=== PATIENT | female | born 1995 | race Caucasian/White ===

== ENCOUNTER 2017-03-25 19:28 | Outpatient (CLI) | payer OTHER, MEDICAID ==
[~2017-03-25] VITALS: Ht 160 cm; Wt 88.2 kg
[2017-03-25 19:53] VITALS: BP 134/78; PULSE 103; TEMP 97.9
[2017-03-25] MEDS ORDERED: ZANTAC 150MG T150 MG PO (19:58)
[2017-03-25] MEDS ORDERED: PRENATAL PO (19:59)
[2017-03-25 20:00] VITALS: BP 134/78; PULSE 103; TEMP 97.9
[2017-03-25] MEDS ORDERED: IRON 27 MG PO (20:00)
[2017-03-25] MEDS ORDERED: BENADRYL25 M2 PO (20:01)
[2017-03-25 20:30] VITALS: BP 119/75; PULSE 88
[2017-03-25 20:47] VITALS: BP 118/77; PULSE 83
== END 2017-03-25 21:10 | disposition home or self-care (01) ==
LOC: LDRO 19:28
DX: O99.89 Other specified diseases and conditions complicating pregnancy, childbirth and the puerperium (principal); R42 Dizziness and giddiness; Z3A.32 32 weeks gestation of pregnancy

== ENCOUNTER 2017-05-26 11:10 | Outpatient (CLI) | payer OTHER, MEDICAID ==
[~2017-05-26 11:10] MED LIST: BENADRYL25 M2 PO; IRON 27 MG PO; PRENATAL PO; ZANTAC 150MG T150 MG PO
[2017-05-26 12:15] VITALS: BP 116/71; PULSE 86; TEMP 97.4
== END 2017-05-26 12:25 | disposition home or self-care (01) ==
LOC: LDRO 11:10 → EDSTATUS 11:15 → LDRO 12:25
DX: Z34.03 Encounter for supervision of normal first pregnancy, third trimester (principal); Z3A.40 40 weeks gestation of pregnancy

== ENCOUNTER 2017-05-31 18:10 | Inpatient (IN) | payer OTHER, MEDICAID ==
[~2017-05-31] VITALS: Ht 160 cm; Wt 94.1 kg
[2017-05-31] VITALS (16 sets, daily range): BP systolic 118–146; BP diastolic 70–82; PULSE 88–109; TEMP 98.2–98.3
[2017-05-31 19:15] LABS: BASO % 0.2 % (0.0-2.0); EOS % 0.1 % (0-4.0); GRAN # 11.9 (1.4-6.5); GRAN % 82.8 % (42.2-75.2); HEMOGLOBIN 11.8 g/dl (12.0-15.0); LYMPH # 1.5 (1.2-3.4); LYMPH % 10.6 % (20.0-51.0); MEAN CELL VOLUME 83 fl (80.0-95.0); MEAN CORPUSCULAR HEMOGLOBIN 28 pg (26.0-32.0); MEAN CORPUSCULAR HGB CONC 34 g/dl (33.0-37.0); MEAN PLATELET VOLUME 11.3 fl (7.4-10.4); MONO # 0.8 (0.1-0.6); MONO % 5.6 % (1.7-9.3); PLATELET COUNT 188 K/mm3 (130-400); RED BLOOD COUNT 4.23 M/mm3 (4.10-5.30); REDCELL DISTRIBUTION WIDTH-CV 15.1 % (11.5-14.5); WHITE BLOOD COUNT 14.4 K/mm3 (4.8-10.8)
[2017-06-01] VITALS (33 sets, daily range): BP systolic 107–146; BP diastolic 56–79; PULSE 72–141; TEMP 97.6–98.9
[2017-06-01] MEDS ORDERED: IBU600 MG PO (15:55)
[2017-06-01] MEDS ORDERED: PERCOCET 325 MG1 TA2 PO (15:55)
[2017-06-02 07:11] VITALS: BP 102/58; PULSE 80; TEMP 97.4
[2017-06-02 15:53] VITALS: BP 105/60; PULSE 68; TEMP 97.5
[2017-06-02 21:00] VITALS: BP 118/69; PULSE 85; TEMP 98.3
[2017-06-03 07:00] VITALS: BP 121/74; PULSE 73; TEMP 97.5
== END 2017-06-03 11:30 | disposition home or self-care (01) | DRG 775 ==
LOC: LDR → OB 18:10 → LDR 18:10 → OB 06-01 10:30
PROVIDERS: Obstetrics & Gynecology
PROC: 10D07Z6 Extraction of Products of Conception, Vacuum, Via Natural or Artificial Opening (ICD-10-PCS; principal; 2017-06-01)
PROC: 0KQM0ZZ Repair Perineum Muscle, Open Approach (ICD-10-PCS; 2017-06-01)
DX: O48.0 Post-term pregnancy (principal); O75.81 Maternal exhaustion complicating labor and delivery; O77.0 Labor and delivery complicated by meconium in amniotic fluid; O70.1 Second degree perineal laceration during delivery; O70.0 First degree perineal laceration during delivery; Z3A.41 41 weeks gestation of pregnancy; Z37.0 Single live birth
CPT/HCPCS: J2590; J7120

== ENCOUNTER → 2020-09-23 | Outpatient (CLI) | payer BC ==
[~2020-09-23] MED LIST changes: +IBU600 MG PO; +PERCOCET 325 MG1 TA2 PO; +TYLENOL 500MG500 MG PO
== END ==
LOC: ZCOL.LAB 08:00
DX: Z20.828 Contact with and (suspected) exposure to other viral communicable diseases (principal)

== ENCOUNTER 2020-09-26 06:52 | Inpatient (IN) | payer BC ==
[~2020-09-26] VITALS: Ht 160 cm; Wt 90.0 kg
[2020-09-26] VITALS (46 sets, daily range): BP systolic 95–132; BP diastolic 53–76; PULSE 59–116; TEMP 97.2–98.7
--- NOTE | 2020-09-26 06:55 | NUR ---
Patient ambulatory onto unit with at side for scheduled induction of labor. Oriented to room, plan of care discussed, patient changes into gown. Patient reports good movement and irregular cramping/contractions. Denies vaginal bleeding or leaking of fluid. EFMs on. VS taken. IV attempted x1 then started by Nicolasa ALVAREZ. Assessment completed. Consents signed. Pitocin started per protocol. SVE 1-2/-2. Denies needs at this time. Call light within reach.
[2020-09-26 07:58] LABS: BASO % 0.2 % (0.0-2.0); EOS % 0.4 % (0-4.0); GRAN # 7.9 (1.4-6.5); GRAN % 76.2 % (42.2-75.2); LYMPH # 1.7 (1.2-3.4); LYMPH % 16.5 % (20.0-51.0); MEAN CELL VOLUME 84 fl (80.0-100.0); MEAN CORPUSCULAR HEMOGLOBIN 27 pg (27.0-31.0); MEAN CORPUSCULAR HGB CONC 33 g/dl (33.0-37.0); MEAN PLATELET VOLUME 11.3 fl (7.4-10.4); MONO # 0.6 (0.1-0.6); PLATELET COUNT 177 K/mm3 (130-400); RED BLOOD COUNT 4.03 M/mm3 (4.10-5.30); REDCELL DISTRIBUTION WIDTH-CV 14.4 % (11.5-14.5)
[2020-09-26 08:02] LABS: HEMATOCRIT 33.7 % (37.0-47.0)
--- NOTE | 2020-09-26 08:05 | NUR ---
to bedside to discuss plan of care with patient. Questions answered. Ultrasound performed, vertex position verified. SVE 2/-2 per provider. AROM discussed, patient agrees. AROM at 0813, small amount of clear fluid noted with exam. at bedside. Call light within reach.
[2020-09-26 08:10] LABS: ALBUMIN 3.7 gm/dL (3.5-5.0); BILIRUBIN,TOTAL 0.5 mg/dL (0.0-1.0); CALCIUM 8.8 mg/dL (8.4-10.2); CREATININE, serum 0.59 (0.52-1.25); POTASSIUM 3.9 mmol/L (3.4-5.0); TOTAL PROTEIN 7.2 gm/dL (6.4-8.2)
--- NOTE | 2020-09-26 10:00 | NUR ---
1000:Pt requesting epidural at this time. 1005: Kyra Ramirez CRNA at bedside, patient sitting up for placement 1008: Lidocaine and single shot given by Kyra Ramirez CRNA. No adverse reactions noted. 1009: Epidural Catheter placed. 1018: Pt repositioned to left tilt
--- NOTE | 2020-09-26 12:30 | NUR ---
Patient calls out feeling "kind of funny". VS WNL. Popsicle provided. Patient repositioned to left lateral with peanut ball in place. Denies futher needs at this time. Call light within reach.
--- NOTE | 2020-09-26 12:40 | NUR ---
to bedside. SVE unchanged, /-2.
--- NOTE | 2020-09-26 13:10 | NUR ---
Patient repostioned to angel position. Patient reports itching. Benadryl given, see eMAR. Call light within reach.
--- NOTE | 2020-09-26 14:25 | NUR ---
RN TO BEDSIDE. SVE /-2. PT REPOSITIONED TO LEFT SIDE WITH RIGHT LEG IN STIRRUP. PT DENIES NEEDS OR CONCERNS AT THIS TIME. CALL LIGHT WITHIN REACH.
--- NOTE | 2020-09-26 14:45 | NUR ---
RN AT BEDSIDE. SVE /-1. PT REPOSITIONED TO RIGHT TILT WITH PEANUT BALL. DENIES PAIN OR CONCERNS AT THIS TIME. CALL LIGHT WITHIN REACH.
--- NOTE | 2020-09-26 15:20 | NUR ---
RN at bedside. SVE 7100/0. Pt repostioned to left tilt. Denies pain or concerns at this time. Call light within reach.
--- NOTE | 2020-09-26 16:05 | NUR ---
Patient reports increased pressure. RN at bedside, SVE 8/100/0 with bloody show. Pt denies pain or other concerns. Call light within reach.
--- NOTE | 2020-09-26 16:24 | NUR ---
Pt reports increased pressure and states "it feels like I have to poop." RN at bedside, SVE 8-9/100/0. Denies pain or other concerns. Call light within reach.
--- NOTE | 2020-09-26 16:40 | NUR ---
Patient reports increased rectal pressure and urge to push. SVE /+1. Will notify .
--- NOTE | 2020-09-26 17:25 | NUR ---
1650: to bedside. 1652: SVE Complete/+1 per provider. 1655: Initial push. Thomas catheter dc'd. 1702: Vacuum on with contraction. 1707: Vacuum on with contraction. 1709: Vacuum assisted vaginal delivery assisted by over 2nd degree laceration. Infant to mothers chest, care of infant assumed by Ryan ALVAREZ. 1714: Spontaneous delivery of placenta assisted by . Pitocin infusing at 333ml/hr. Fundus firm, lochia WNL. 2nd degree laceration repaired using 3-[address]-1 by . 1722: Red betina catheter used to drain bladder. 1725: Recovery started.
--- NOTE | 2020-09-26 18:55 | NUR ---
Report to Mitali ALVAREZ to assume care of patient at this time.
--- NOTE | 2020-09-26 19:00 | NUR ---
REPORT TAKEN AND CARE ASSUMED. PATIENT RESTING IN BED NURSING BABY. AT SIDE FOR SUPPORT. DENIES NEEDS AT THIS TIME.
[2020-09-27 01:30] VITALS: BP 102/58; PULSE 68; TEMP 97.6
[2020-09-27 07:02] LABS: HEMOGLOBIN 10.7 g/dl (12.5-16.0)
[2020-09-27 07:07] LABS: HEMATOCRIT 32.8 % (37.0-47.0)
[2020-09-27 07:15] VITALS: BP 97/49; PULSE 57; TEMP 98
--- NOTE | 2020-09-27 07:15 | NUR ---
Rests in bed, alert. Request pain medication. Tylenol 650 mg given per request and as ordered.
[2020-09-27] MEDS ORDERED: IBU600 MG PO (08:05)
[2020-09-27] MEDS ORDERED: PERCOCET 325 MG1 TA2 PO (08:05)
--- NOTE | 2020-09-27 08:58 | NUR ---
Initial visit; Parents thanked Workforce Management Manager for offering congratulations and God's blessings for the of their son. Workforce Management Manager thanked family for choosing [facility].
--- NOTE | 2020-09-27 13:12 | NUR ---
Rests in bed, alert. Request pain medication. Percocet 5/325 mg one given per request and as ordered.
[2020-09-27 17:15] VITALS: BP 114/70; PULSE 53; TEMP 98.6
[2020-09-27 22:25] VITALS: BP 114/59; PULSE 61; TEMP 97.8
[2020-09-28 06:45] VITALS: BP 111/55; PULSE 54; TEMP 98.4
--- NOTE | 2020-09-28 13:45 | NUR ---
Discharge instructions given, pt verbalizes understanding. No further questions noted. Bands matched and hugs tag removed.
== END 2020-09-28 14:05 | disposition home or self-care (01) | DRG 807 ==
LOC: LDR 06:52 → OB 16:48
PROVIDERS: ADMIT Obstetrics & Gynecology
PROC: 10D07Z6 Extraction of Products of Conception, Vacuum, Via Natural or Artificial Opening (ICD-10-PCS; principal; 2020-09-26)
PROC: 10907ZC Drainage of Amniotic Fluid, Therapeutic from Products of Conception, Via Natural or Artificial Opening (ICD-10-PCS; 2020-09-26)
PROC: 3E033VJ Introduction of Other Hormone into Peripheral Vein, Percutaneous Approach (ICD-10-PCS; 2020-09-26)
DX: O99.62 Diseases of the digestive system complicating childbirth (principal); Z37.0 Single live birth; O76 Abnormality in fetal heart rate and rhythm complicating labor and delivery; Z3A.39 39 weeks gestation of pregnancy; K80.70 Calculus of gallbladder and bile duct without cholecystitis without obstruction
CPT/HCPCS: J1200; J2590; J2795; J7120

== ENCOUNTER 2020-10-04 10:44 | Day surgery (SDC) | payer BC ==
[~2020-10-04] VITALS: Ht 160 cm; Wt 83.4 kg
[2020-10-04] VITALS (7 sets, daily range): BP systolic 113–122; BP diastolic 63–74; PULSE 55–80; TEMP 98–100.3
[2020-10-04] MEDS ORDERED: IBU600 MG PO ×2 (12:18→15:03)
--- NOTE | 2020-10-04 12:21 | NUR ---
TO RM 2 AT 1136- CALL LIGHT IN REACH WILL CALL FOR RIDE HOME
--- NOTE | 2020-10-04 15:00 | NUR ---
TO RM 2 PER CART FROM PACU. ALERT ORIENTED X3 TALKING TO STAFF. PATIENT EATING ICE CHIPS. DENIES PAIN OR DISCOMFORT AT CURRENT TIME UNLESS HE SHE MOVES. INCISION SITES CLEAN DRY INTACT. DENIES NAUSEA AT THIS TIME.
[2020-10-04] MEDS ORDERED: PERCOCET 325 MG1 TA2 PO (15:03)
--- NOTE | 2020-10-04 15:15 | NUR ---
PATIENT RESTING QUIETLY.
--- NOTE | 2020-10-04 15:30 | NUR ---
RECEIVED CRACKERS AND A SPRITE.
--- NOTE | 2020-10-04 15:45 | NUR ---
ATE 100% AND TOLERATED WELL.
--- NOTE | 2020-10-04 16:05 | NUR ---
RECEIVED PERCOCET 1 TAB
--- NOTE | 2020-10-04 16:15 | NUR ---
RECEIVED WARM BLANKET BEHIND BACK TO HELP WITH COMFORT.
--- NOTE | 2020-10-04 16:30 | NUR ---
PATIENT STATED SHE WANTED TO GO TO BATHROOM SO SHE COULD GO HOME. AMBULATED TO BATHROOM WITH ASSIST. PATIENT STATED SHE STILL HAS SOME DRAINAGE FROM HAVING GIVING ON 09/26/20.
--- NOTE | 2020-10-04 16:45 | NUR ---
RECEIVED DISCHARGE INSTRUCTIONS DISCONTINUED IV AND INT PATIENT GETTING DRESSED.
--- NOTE | 2020-10-04 17:18 | NUR ---
DISCHARGED PER WC BY NURSING STAFF TO PRIVATE CAR IN CARE OF AMANDA.
== END 2020-10-04 17:20 | disposition home or self-care (01) ==
LOC: SDCO 10:44
DX: K80.10 Calculus of gallbladder with chronic cholecystitis without obstruction (principal); F32.9 Major depressive disorder, single episode, unspecified; Z20.828 Contact with and (suspected) exposure to other viral communicable diseases; D64.9 Anemia, unspecified
CPT/HCPCS: J0690; J1100; J2405; J2704; J3010; J7120; Q9967